=== PATIENT | female | born 1940 | race Caucasian/White ===

== ENCOUNTER 2018-10-15 06:44 | Day surgery (SDC) | payer MEDICARE, BC ==
--- NOTE | 2018-10-15 06:29 | History and Physical - [place] ---
CHIEF COMPLAINT/HISTORY OF CHIEF COMPLAINT: This patient presents with a history of intractable lumbar radiculopathy. Due to the failure of all therapies, a spinal cord stimulator trial was conducted on 09/02/18 with 75-85% pain control. Due to the failure of all therapies and the success of the trial , she presents today for implantation of a permanent system. PAST MEDICAL HISTORY: Hypertension, chronic headaches, bladder dysfunction, reflux esophagitis, degenerative arthritis, depression, and trouble sleeping. PAST SURGICAL HISTORY: Colon resection, gallbladder surgery, and knee surgery. EMPLOYMENT STATUS: Retired. MEDICATIONS ON ADMISSION: List to be provided. ALLERGIES: List to be provided. FAMILY/PSYCHOSOCIAL HISTORY: Social history - Noncontributory. Family history - Thyroid disease, coronary artery disease and cancer. SYSTEMS REVIEW: The patient is appropriate in no acute distress at the time of examination. PHYSICAL EXAMINATION: Height is 4'8", weight is 160. No vital signs. HEENT: Within normal limits. LUNGS: Clear. HEART: Rapid and regular. ABDOMEN: Nontender. MUSCULOSKELETAL: Examination of the musculoskeletal system shows diffuse tenderness at the lumbar spine. Range of motion produces pain into both legs somewhat more left than right. There are no current motor or sensory abnormalities, but pain across multiple dermatomes. Ambulation - No assistive device utilized. NEUROLOGIC: Cranial nerves are intact. IMPRESSION: LUMBAR RADICULOPATHY, ICD-10 CODE M54.16 AND M54.17. PLAN: The patient is here for a spinal cord stimulator implantation after a successful trial and failure of other therapies. The procedure will be considered outpatient although an overnight stay will be evaluated. Because of the extensive and moderate to severe rotoscoliosis, the complexity of the procedure has been discussed and reviewed. The potential risks, side effects and complications have been reviewed, information from the safety companion by way of a CD ROM provided and interaction with a clinical specialist from [employer] provided. All questions were answered. JOB NUMBER: [id number] MTDD
[~2018-10-15 06:44] MED LIST: ACETAMINOPHEN 1,000 MG/100 ML BTL IV ONE; CLINDAMYCIN 600MG/50ML PREMIX 600 MG/50 ML BAG IVPB ONE; FAMOTIDINE 20MG TABLET PO ONE; MECLIZINE 25 MG TABLET PO ONE; METOCLOPRAMIDE 10 MG TABLET PO ONE
[2018-10-15] MEDS ORDERED: HYDROCODONE/APAP 7.5/325MG TABLET PO ONE ×2 (06:45→10:09)
[2018-10-15] MEDS ORDERED: SCOPOLAMINE 1 PATCH TDSY TD ONE ×2 (06:45→07:52)
[2018-10-15] MEDS ORDERED: MIDAZOLAM HCL 2MG/2ML VIAL IV ONE (06:45)
[2018-10-15] MEDS ORDERED: Clindamycin 600mg vial 150 MG/ML VIAL IVPB ONE (06:45)
[2018-10-15] MEDS ORDERED: FENTANYL PF 100MCG/2ML VIAL IV ONE (06:45)
[2018-10-15] MEDS ORDERED: LIDOCAINE 2% MDV (20MG/ML) 20ML VIAL IV ONE (06:45)
[2018-10-15] MEDS ORDERED: PROPOFOL 10 MG/ML VIAL IV ONE (06:45)
[2018-10-15] MEDS ORDERED: KETAMINE HCL 100MG/1ML VIAL INJ ONE (06:45)
[2018-10-15] MEDS ORDERED: RINGERS SOLUTION,LACTATED 1,000 ML IV ONE (07:20)
[2018-10-15] MEDS ORDERED: LIDOCAINE 1% W/EPI 1:100,000 MDV 20 ML VIAL SQ ONE ×2 (08:32)
[2018-10-15] MEDS ORDERED: BUPIVACAINE 0.5% W/EPI MPF 30 ML VIAL SQ ONE ×2 (08:32)
[2018-10-15] MEDS ORDERED: RINGERS SOLUTION,LACTATED 400 ML IV ONE (09:41)
--- NOTE | 2018-10-17 08:31 | Operative Note ---
DATE OF SURGERY: 10/15/2018 PREOPERATIVE DIAGNOSIS: Intractable lumbar radiculopathy, ICD10 M54.16 and M54.17, with moderately severe thoracolumbar rotoscoliosis, ICD10 M41.25. OPERATION: 1. Fluoroscopic-guided bilateral access left T12-L1, placement of spinal cord stimulator lead 1 [employer] Infinion 16, 6 electrodes positioned left T6. 2. Fluoroscopic-guided bilateral access left T11-12, placement of spinal cord stimulator lead 2 [employer] Infinion 16, 6 electrodes positioned right T6. 3. Complex programming of lead 1 over 20 minutes followed by complex programming of lead 2 over 20 minutes. 4. Incision and subcutaneous dissection and anchoring of lead 1 and lead 2 to supraspinous fascia with a [employer] locking anchor. 5. Incision and subcutaneous dissection and creation of subcutaneous pouch at left posterior gluteal margin for placement of generator identified as a [employer] programmable rechargeable WaveWriter. 6. Tunneling between lead pouch, placement of external portion of lead 1 and lead 2 in the generator pouch, each lead interfaced with generator. 7. Placement of generator pouch, placement of leads into their pouch, closure of both incisions using Stratafix suture 2-0 fascia, 3-0 skin, and Dermabond closure. A complex recovery room programming internal generator on use of two stimulators in recovery room for 20 minutes. SURGEON: Robert Isidro DO ANESTHESIA: Local sedation. ANESTHESIA PROVIDER: Brisa Ortiz INDICATION: This patient presents with a history of intractable lumbar radiculopathy with a moderately severe scoliosis. Due to the failure of all therapies, a spinal cord stimulator trial was conducted with 75 plus percent pain control. Due to the failure of therapy and the success of the trial, the patient is here for implantation of permanent system. PROCEDURE: Intravenous line, vital sign monitoring, IV sedation. Prepped and draped with sterile technique. On imaging, the epidural interspace left of the midline at T11-12, 12-1 both marked, infiltrated, 2 separate curved access Epimed needles. Loss of resistance into the space. Atraumatic. No blood, no CSF. At 12-1, spinal cord stimulator lead 1, a [employer] Infinion 16, 6 electrodes positioned left of the midline T6. With the access at 11-12, spinal cord stimulator lead 2, [employer] Infinion 16, 6 electrodes positioned left of the midline at T6. Each access was atraumatic. No blood, no CSF. Each access used a curved access Epimed needle. With lead 1 and lead 2 into the space, complex programming of lead 1 over 20 minutes followed by complex programming of lead 2 over 20 minutes performed. Establishing stimulation and pain control to all the appropriate areas. She was then given the option to implant the system and continue to program for better options or remove the system. She opted to implant. The question was repeated with the same resposne. She was then re-sedated. The skin above both needles was infiltrated. Local incision was made and subcutaneous dissection was conducted to supraspinous fascia. Once the needles were removed, each lead was anchored to the supraspinous fascia with a [employer] locking anchor and nonabsorbable suture. At the left posterior gluteal margin, a site picked by the patient for the generator, skin incision made and subcutaneous dissection was conducted for a pouch suitable to the size and depth of the generator. Antibiotic irrigation and Bovie for hemostasis. The generator was placed into the pouch. The leads were placed into their own pouch and then both incisions were closed using Stratafix suture, 2-0 fascia, and 3-0 skin. A Dermabond closure was then used to approximate the edges of both wounds. She was transferred to recovery room stable. No side effects from the procedure or sedation. The request on the part of the patient was to be discharged home. She was monitored until stable, given the appropriate instructions, and then discharged. DISCHARGE INSTRUCTIONS: 1. The sites will remain clean and dry although the Dermabond will allow showering. No sitting in a tub or water. 2. Standard medications resumed including the antibiotic which will be selected from her list of appropriate antibiotics for the next 10-14 days. 3. The office will contact the patient at home to set up a time when we can evaluate these sites. Until then, she is to keep her activities low. She can trim the edges of the Dermabond dressing but do not pull the Dermabond dressing off. Should it come off, she should contact the clinic. All other instructions were provided with numbers to contact if problems given. She was then discharged. CC: Dr. David JOHNSTON
--- NOTE | 2018-10-17 22:34 | RADIOLOGY REPORT ---
EXAM: SPINE, 1 VIEW HISTORY: STATUS POST SPINAL CANAL STIMULATOR IMPLANT. TECHNIQUE: Single AP portable spine view of the thoracic and lumbar portions of the spine obtained. COMPARISON: Same-day intraoperative radiographs. FINDINGS: There is S-shaped thoracolumbar scoliosis associated with multilevel degenerative endplate changes. No lytic or blastic lesion. Surgical clips are noted in the right upper quadrant of the abdomen. A dual-lead intraspinal stimulator is in place with leads entering the spinal canal at the upper lumbar levels. Lead tips project at the T5 level when counting from the level of the first ribs. IMPRESSION: DUAL-LEAD INTRASPINAL STIMULATOR IN PLACE WITH LEAD TIPS PROJECTING AT THE T5 LEVEL. JOB NUMBER: [id number] MTDD
== END 2018-10-15 10:36 | disposition home or self-care (01) ==
LOC: SUR 06:44
PROVIDERS: ATTEND Pain Medicine Interventional Pain Medicine
DX: M54.16 Radiculopathy, lumbar region (principal); M54.17 Radiculopathy, lumbosacral region; M41.25 Other idiopathic scoliosis, thoracolumbar region; I10 Essential (primary) hypertension; K21.9 Gastro-esophageal reflux disease without esophagitis
CPT/HCPCS: 63650; 63685; 01936; 95972; 72020; J3010; J3490; C1820; C1883; J7120